=== PATIENT | female | born 1930 | race Caucasian/White ===

== ENCOUNTER 2016-03-11 13:58 | Emergency (ER) | payer MEDICARE, OTHER ==
--- NOTE | 2016-03-11 15:44 | ED.PDOC ---
History of Present Illness - General Chief Complaint: Respiratory Problem Stated Complaint: COUGH AND WHEEZING Time Seen by Provider: 03/11/16 15:43 Source: patient, RN notes reviewed, Vital Signs reviewed, EMS notes reviewed, family Exam Limitations: no limitations - History of Present Illness Initial Comments: Daughter stated that she had been coughing and wheezing for 5 days which got worse today Timing/Duration: other - 5 days Improving Factors: nothing Worsening Factors: nothing Associated Symptoms: weakness Allergies/Adverse Reactions: Allergies Codeine Allergy (Verified 10/18/15 22:08) Home Medications: Ambulatory Orders Atorvastatin Calcium [Lipitor] 10 mg PO BEDTIME 09/23/14 Levothyroxine Sodium 50 mcg PO ACBK 09/23/14 Memantine HCl [Namenda Xr] 28 mg PO BEDTIME 09/23/14 Metoprolol Succinate [Metoprolol Succinate ER] 25 mg PO DAILY 09/23/14 Sertraline HCl 100 mg PO BID 09/23/14 Raloxifene HCl [Evista] 60 mg PO DAILY 04/24/15 Trazodone HCl 100 mg PO BEDTIME 09/16/15 Aspirin [Coated Aspirin] 325 mg PO DAILY 10/29/15 Axona 1 ea PO PP 10/30/15 Mefenamic Acid [Ponstel] 250 mg PO TID 10/30/15 Metoprolol Succinate [Metoprolol Succinate ER] 25 mg PO DAILY 10/30/15 Raloxifene HCl [Evista] 60 mg PO DAILY 10/30/15 Rivastigmine Tartrate [Exelon] 6 mg PO DAILY 10/30/15 Vitamin E [Vitamin E-200] 1,000 unit PO BID 10/30/15 Cefuroxime Axetil [Ceftin] 250 mg PO BID #14 tab 03/11/16 Levalbuterol Tartrate [Xopenex Hfa] 45 mcg IN QID PRN #1 ml 03/11/16 predniSONE [Prednisone] 10 mg PO BID #14 tab 03/11/16 Review of Systems - Review of Systems Constitutional: States: weakness Respiratory: States: cough, wheezing Cardiology: States: no symptoms reported Gastrointestinal/Abdominal: States: no symptoms reported Genitourinary: States: see HPI, other - oab Musculoskeletal: States: muscle pain Skin: States: no symptoms reported Neurological: States: other - dementia Endocrine: States: no symptoms reported Hematologic/Lymphatic: States: no symptoms reported Past Medical History (General) - Patient Medical History Hx Seizures: No Hx Stroke: Yes - TIA Hx Dementia: Yes Hx Asthma: No Hx of COPD: No Hx Cardiac Disorders: Yes Hx Congestive Heart Failure: No Hx Pacemaker: No Hx Hypertension: Yes Hx Thyroid Disease: Yes Hx Diabetes: No Hx Cancer: No Hx Hepatitis C: No Hx MRSA: No Surgical History: other - TAHBSO,carotid tumor removal,retina surgery - Vaccination History Hx Tetanus, Diphtheria Vaccination: Yes Hx Influenza Vaccination: Yes Hx Pneumococcal Vaccination: Yes Immunizations Up to Date: Yes - Social History Hx Tobacco Use: No Hx Chewing Tobacco Use: No Hx Alcohol Use: No Hx Substance Use: No Hx Substance Use Treatment: No Hx Depression: Yes Hx Physical Abuse: No Hx Emotional Abuse: No Hx Suspected Abuse: No - Activities of Daily Living Patient Lives Alone: Yes - but with 24 hour sitter stays with her Grooming Ability: Maximum Assistance - Female History Patient : No Family Medical History - Family History Mother Living Status: Hx Family Hypertension: Yes Hx Family Stroke: Yes Hx Family Cancer: Yes - lymphocytic leukemia Father Living Status: Physical Exam - Physical Exam General Appearance: Alert, No apparent distress, Well Groomed Ears, Nose, Throat: hearing grossly normal, normal ENT inspection, normal pharynx Neck: non-tender, full range of motion, supple Respiratory: chest non-tender, no respiratory distress, no accessory muscle use , wheezing - mld, other - speaks in full sentences Cardiovascular/Chest: normal peripheral pulses, regular rate, rhythm, no edema, no gallop Gastrointestinal/Abdominal: normal bowel sounds, non tender Back Exam: normal inspection, no CVA tenderness, no vertebral tenderness Extremity: normal range of motion, non-tender, pedal edema - bilaterally Neurologic: no motor/sensory deficits, alert Skin Exam: normal color, warm/dry Lymphatic: no adenopathy Progress - Results/Orders Results/Orders: 03/11/16 15:59 EKG Assessment ONCE URINALYSIS Stat 03/11/16 16:00 EKG STAT Laboratory Results WBC 12.8 K/mm3 (4.8-10.8) H 03/11/16 16:10 RBC 4.33 M/mm3 (4.20-5.40) 03/11/16 16:10 Hgb 12.2 gm/dL (12.0-16.0) 03/11/16 16:10 Hct 38.0 % (36.0-47.0) 03/11/16 16:10 MCV 87.6 fl (81.0-99.0) 03/11/16 16:10 MCH 28.1 pg (27.0-31.0) 03/11/16 16:10 MCHC 32.1 g/dL (33.0-37.0) L 03/11/16 16:10 RDW 15.8 % (11.5-14.5) H 03/11/16 16:10 Plt Count 275 K/mm3 (130-400) 03/11/16 16:10 MPV 7.5 fl (7.40-10.4) 03/11/16 16:10 Absolute Neuts (auto) 7.50 K/uL (1.8-6.8) H 03/11/16 16:10 Absolute Lymphs (auto) 3.20 K/uL (1.0-3.4) 03/11/16 16:10 Absolute Monos (auto) 1.00 K/uL (0.2-0.8) H 03/11/16 16:10 Absolute Eos (auto) 0.90 K/uL (0.0-0.4) H 03/11/16 16:10 Absolute Basos (auto) 0.10 K/uL (0.0-0.1) 03/11/16 16:10 Neutrophils % 58.9 % (42.0-78.0) 03/11/16 16:10 Lymphocytes % 25.0 % (20.0-50.0) 03/11/16 16:10 Monocytes % 8.2 % (2.0-9.0) 03/11/16 16:10 Eosinophils % 7.1 % (1.0-5.0) H 03/11/16 16:10 Basophils % 0.8 % (0.0-2.0) 03/11/16 16:10 Sodium 135 mmol/L (135-145) 03/11/16 16:10 Potassium 4.1 mmol/L (3.6-5.0) 03/11/16 16:10 Chloride 102 mmol/L (101-111) 03/11/16 16:10 Carbon Dioxide 26 mmol/L (21-31) 03/11/16 16:10 Anion Gap 11.1 (12-18) L 03/11/16 16:10 BUN 13 mg/dL (7-18) 03/11/16 16:10 Creatinine 0.91 mg/dL (0.6-1.3) 03/11/16 16:10 BUN/Creatinine Ratio 14.3 (10-20) 03/11/16 16:10 Random Glucose 83 mg/dL (70-105) 03/11/16 16:10 Serum Osmolality 269.4 mOsm/L (275-295) L 03/11/16 16:10 Lactic Acid 1.1 mmol/L (0.5-2.2) 03/11/16 16:10 Calcium 9.0 mg/dL (8.4-10.2) 03/11/16 16:10 Total Bilirubin 0.4 mg/dL (0.2-1.0) 03/11/16 16:10 AST 24 IU/L (10-42) 03/11/16 16:10 ALT 21 IU/L (10-60) 03/11/16 16:10 Alkaline Phosphatase 67 IU/L (42-121) 03/11/16 16:10 B-Natriuretic Peptide 116.0 pg/ml (0-100) H 03/11/16 16:10 Serum Total Protein 6.6 gm/dL (6.4-8.2) 03/11/16 16:10 Albumin 3.3 g/dl (3.2-5.5) 03/11/16 16:10 Globulin 3.3 gm/dL (2.3-3.5) 03/11/16 16:10 Albumin/Globulin Ratio 1.0 (1.1-1.9) L 03/11/16 16:10 03/11/16 16:00 EKG STAT 03/11/16 18:05 Catheter:Straight .ONCE Laboratory Results WBC 12.8 K/mm3 (4.8-10.8) H 03/11/16 16:10 RBC 4.33 M/mm3 (4.20-5.40) 03/11/16 16:10 Hgb 12.2 gm/dL (12.0-16.0) 03/11/16 16:10 Hct 38.0 % (36.0-47.0) 03/11/16 16:10 MCV 87.6 fl (81.0-99.0) 03/11/16 16:10 MCH 28.1 pg (27.0-31.0) 03/11/16 16:10 MCHC 32.1 g/dL (33.0-37.0) L 03/11/16 16:10 RDW 15.8 % (11.5-14.5) H 03/11/16 16:10 Plt Count 275 K/mm3 (130-400) 03/11/16 16:10 MPV 7.5 fl (7.40-10.4) 03/11/16 16:10 Absolute Neuts (auto) 7.50 K/uL (1.8-6.8) H 03/11/16 16:10 Absolute Lymphs (auto) 3.20 K/uL (1.0-3.4) 03/11/16 16:10 Absolute Monos (auto) 1.00 K/uL (0.2-0.8) H 03/11/16 16:10 Absolute Eos (auto) 0.90 K/uL (0.0-0.4) H 03/11/16 16:10 Absolute Basos (auto) 0.10 K/uL (0.0-0.1) 03/11/16 16:10 Neutrophils % 58.9 % (42.0-78.0) 03/11/16 16:10 Lymphocytes % 25.0 % (20.0-50.0) 03/11/16 16:10 Monocytes % 8.2 % (2.0-9.0) 03/11/16 16:10 Eosinophils % 7.1 % (1.0-5.0) H 03/11/16 16:10 Basophils % 0.8 % (0.0-2.0) 03/11/16 16:10 Sodium 135 mmol/L (135-145) 03/11/16 16:10 Potassium 4.1 mmol/L (3.6-5.0) 03/11/16 16:10 Chloride 102 mmol/L (101-111) 03/11/16 16:10 Carbon Dioxide 26 mmol/L (21-31) 03/11/16 16:10 Anion Gap 11.1 (12-18) L 03/11/16 16:10 BUN 13 mg/dL (7-18) 03/11/16 16:10 Creatinine 0.91 mg/dL (0.6-1.3) 03/11/16 16:10 BUN/Creatinine Ratio 14.3 (10-20) 03/11/16 16:10 Random Glucose 83 mg/dL (70-105) 03/11/16 16:10 Serum Osmolality 269.4 mOsm/L (275-295) L 03/11/16 16:10 Lactic Acid 1.1 mmol/L (0.5-2.2) 03/11/16 16:10 Calcium 9.0 mg/dL (8.4-10.2) 03/11/16 16:10 Total Bilirubin 0.4 mg/dL (0.2-1.0) 03/11/16 16:10 AST 24 IU/L (10-42) 03/11/16 16:10 ALT 21 IU/L (10-60) 03/11/16 16:10 Alkaline Phosphatase 67 IU/L (42-121) 03/11/16 16:10 B-Natriuretic Peptide 116.0 pg/ml (0-100) H 03/11/16 16:10 Serum Total Protein 6.6 gm/dL (6.4-8.2) 03/11/16 16:10 Albumin 3.3 g/dl (3.2-5.5) 03/11/16 16:10 Globulin 3.3 gm/dL (2.3-3.5) 03/11/16 16:10 Albumin/Globulin Ratio 1.0 (1.1-1.9) L 03/11/16 16:10 Urine Color Yellow (Yellow) 03/11/16 17:58 Urine Appearance Clear (Clear) 03/11/16 17:58 Urine pH 6.0 (4.5-7.8) 03/11/16 17:58 Ur Specific [place] 1.015 (1.005-1.030) 03/11/16 17:58 Urine Protein Negative mg/dL 03/11/16 17:58 Urine Glucose (UA) Negative mg/dL (Negative) 03/11/16 17:58 Urine Ketones Negative mg/dL (NEGATIVE) 03/11/16 17:58 Urine Blood Negative (Negative) 03/11/16 17:58 Urine Nitrite Negative 03/11/16 17:58 Urine Bilirubin Negative (NEGATIVE) 03/11/16 17:58 Urine Urobilinogen 0.2 mg/dL (0.2-1.0) 03/11/16 17:58 Ur Leukocyte Esterase Negative (Negative) 03/11/16 17:58 Urine RBC 0-1 /hpf 03/11/16 17:58 Urine WBC 1-3 /hpf 03/11/16 17:58 Ur Epithelial Cells 0-1 /hpf 03/11/16 17:58 Urine Bacteria 0 03/11/16 17:58 Departure - Departure Clinical Impression: Bronchitis with bronchospasm Time of Disposition: 18:50 Disposition: Discharge to Home or Self Care Condition: Good Departure Forms: ED Discharge - Pt. Copy, Patient Portal Self Enrollment Instructions: DI for Acute Bronchitis Prescriptions: Cefuroxime Axetil [Ceftin] 250 mg PO BID #14 tab predniSONE [Prednisone] 10 mg PO BID #14 tab Levalbuterol Tartrate [Xopenex Hfa] 45 mcg IN QID PRN #1 ml PRN Reason: Wheezing Home Medications: Ambulatory Orders Atorvastatin Calcium [Lipitor] 10 mg PO BEDTIME 09/23/14 Levothyroxine Sodium 50 mcg PO ACBK 09/23/14 Memantine HCl [Namenda Xr] 28 mg PO BEDTIME 09/23/14 Metoprolol Succinate [Metoprolol Succinate ER] 25 mg PO DAILY 09/23/14 Sertraline HCl 100 mg PO BID 09/23/14 Raloxifene HCl [Evista] 60 mg PO DAILY 04/24/15 Trazodone HCl 100 mg PO BEDTIME 09/16/15 Aspirin [Coated Aspirin] 325 mg PO DAILY 10/29/15 Axona 1 ea PO PP 10/30/15 Mefenamic Acid [Ponstel] 250 mg PO TID 10/30/15 Metoprolol Succinate [Metoprolol Succinate ER] 25 mg PO DAILY 10/30/15 Raloxifene HCl [Evista] 60 mg PO DAILY 10/30/15 Rivastigmine Tartrate [Exelon] 6 mg PO DAILY 10/30/15 Vitamin E [Vitamin E-200] 1,000 unit PO BID 10/30/15 Cefuroxime Axetil [Ceftin] 250 mg PO BID #14 tab 03/11/16 Levalbuterol Tartrate [Xopenex Hfa] 45 mcg IN QID PRN #1 ml 03/11/16 predniSONE [Prednisone] 10 mg PO BID #14 tab 03/11/16
--- NOTE | 2016-03-11 16:32 | RAD ---
EXAM DESCRIPTION: XR CHEST 1 VIEW CLINICAL HISTORY: cough COMPARISON: October 30, 2015. FINDINGS: Cardiac silhouette is within normal limits. Contour of the mediastinum and aorta are unchanged compared with the prior examination. Patient is rotated. There is no focal parenchymal or pleural disease. There is no acute osseous process visualized. IMPRESSION: No evidence of acute cardiopulmonary disease. Electronically signed by: Vignesh Sotelo 03/11/2016 16:30
[2016-03-11 18:51] VITALS: TEMP 98.6; O2SAT 96
[2016-03-11] MEDS ORDERED: CEFUROXIME AXETIL TAB 250 MG TAB PO ONE (18:51)
[2016-03-11] MEDS ORDERED: predniSONE 20 MG TAB PO ONE (18:52)
[2016-03-11 19:28] VITALS: BP 142/82
== END 2016-03-11 19:28 | disposition home or self-care (01) ==
LOC: ER 13:58
DX: J40 Bronchitis, not specified as acute or chronic (principal); J98.01 Acute bronchospasm; Z88.6 Allergy status to analgesic agent; I10 Essential (primary) hypertension; E07.9 Disorder of thyroid, unspecified; F32.9 Major depressive disorder, single episode, unspecified; F03.90 Unspecified dementia, unspecified severity, without behavioral disturbance, psychotic disturbance, mood disturbance, and anxiety; Z79.82 Long term (current) use of aspirin; Z79.899 Other long term (current) drug therapy; Z86.73 Personal history of transient ischemic attack (TIA), and cerebral infarction without residual deficits
CPT/HCPCS: 36415; 51701; 71010; 80053; 81001; 83605; 83880; 85025; 93005; J7512

== ENCOUNTER → 2016-04-02 | Outpatient (CLI) | payer MEDICARE, OTHER | LOC: GMA 14:06 | PROVIDERS: ATTEND Nurse Practitioner Family | DX: M62.81 Muscle weakness (generalized) (principal) ==

== ENCOUNTER 2016-04-22 16:44 | Emergency (ER) | payer MEDICARE, OTHER ==
--- NOTE | 2016-04-22 18:40 | RAD ---
EXAM DESCRIPTION: KUB CLINICAL HISTORY: diarrhea, ams COMPARISON: None. FINDINGS: Single supine view of the abdomen was submitted. There is no evidence of bowel obstruction. Calcifications within the pelvis may represent phleboliths. There are degenerative changes and scoliosis of the lumbar spine.. There is no acute osseous process visualized. IMPRESSION: No acute abnormalities. Electronically signed by: Vignesh Sotelo MD 04/22/2016 6:40 PM MINE ANALYST
--- NOTE | 2016-04-22 19:22 | ED.PDOC ---
History of Present Illness - General Chief Complaint: General Time Seen by Provider: 04/22/16 17:05 Source: patient, family Exam Limitations: no limitations - History of Present Illness Initial Comments: the patient is an 85-year-old female presenting to the emergency room with her family secondary to symptoms progressive over the last week. Over the last week she has become a little weaker and getting around requiring more assistance. She has additionally been showing some increased confusion but no focal neurological changes and nothing truly abrupt. She has had a couple of episodes of nausea and several episodes of diarrhea over the last 24 hours. Her oral intake has been fair. No definite fevers. It is difficult to tell what symptoms she is having due to the dementia. Family is very supportive and in fact they are placing her in an assisted living facility today where she will have to nurses to help her. Timing/Duration: unsure Severity: mild Improving Factors: nothing Worsening Factors: nothing Associated Symptoms: malaise, weakness Allergies/Adverse Reactions: Allergies Codeine Allergy (Verified 10/18/15 22:08) Home Medications: Ambulatory Orders Atorvastatin Calcium [Lipitor] 10 mg PO BEDTIME 09/23/14 Levothyroxine Sodium 50 mcg PO ACBK 09/23/14 Memantine HCl [Namenda Xr] 28 mg PO BEDTIME 09/23/14 Metoprolol Succinate [Metoprolol Succinate ER] 25 mg PO DAILY 09/23/14 Sertraline HCl 100 mg PO BID 09/23/14 Raloxifene HCl [Evista] 60 mg PO DAILY 04/24/15 Trazodone HCl 100 mg PO BEDTIME 09/16/15 Aspirin [Coated Aspirin] 325 mg PO DAILY 10/29/15 Axona 1 ea PO PP 10/30/15 Mefenamic Acid [Ponstel] 250 mg PO TID 10/30/15 Metoprolol Succinate [Metoprolol Succinate ER] 25 mg PO DAILY 10/30/15 Raloxifene HCl [Evista] 60 mg PO DAILY 10/30/15 Rivastigmine Tartrate [Exelon] 6 mg PO DAILY 10/30/15 Vitamin E [Vitamin E-200] 1,000 unit PO BID 10/30/15 Cefuroxime Axetil [Ceftin] 250 mg PO BID #14 tab 03/11/16 Levalbuterol Tartrate [Xopenex Hfa] 45 mcg IN QID PRN #1 ml 03/11/16 predniSONE [Prednisone] 10 mg PO BID #14 tab 03/11/16 Review of Systems - Review of Systems Constitutional: States: malaise, weakness - generalized EENTM: States: no symptoms reported Respiratory: States: no symptoms reported Cardiology: States: no symptoms reported Gastrointestinal/Abdominal: States: diarrhea, nausea Genitourinary: States: no symptoms reported Musculoskeletal: States: no symptoms reported Skin: States: no symptoms reported Neurological: States: other - increased confusion Endocrine: States: no symptoms reported All other Systems: No Change from Baseline Past Medical History (General) - Patient Medical History Hx Seizures: No Hx Stroke: Yes - TIA Hx Dementia: Yes Hx Asthma: No Hx of COPD: No Hx Cardiac Disorders: Yes Hx Congestive Heart Failure: No Hx Pacemaker: No Hx Hypertension: Yes Hx Thyroid Disease: Yes Hx Diabetes: No Hx Cancer: No Hx Hepatitis C: No Hx MRSA: No - Vaccination History Hx Tetanus, Diphtheria Vaccination: Yes Hx Influenza Vaccination: Yes Hx Pneumococcal Vaccination: Yes - Social History Hx Tobacco Use: No Hx Chewing Tobacco Use: No Hx Alcohol Use: No Hx Substance Use: No Hx Substance Use Treatment: No Hx Depression: Yes Hx Physical Abuse: No Hx Emotional Abuse: No Hx Suspected Abuse: No - Female History Patient : No Family Medical History - Family History Mother Living Status: Hx Family Hypertension: Yes Hx Family Stroke: Yes Hx Family Cancer: Yes - lymphocytic leukemia Father Living Status: Physical Exam - Physical Exam General Appearance: Alert, Comfortable, No apparent distress, Other - he is significantly confused but in no distress Eye Exam: bilateral normal Ears, Nose, Throat: normal ENT inspection, normal pharynx Neck: non-tender, full range of motion, supple Respiratory: chest non-tender, lungs clear, normal breath sounds, no respiratory distress, no accessory muscle use Cardiovascular/Chest: normal peripheral pulses, no edema Peripheral Pulses: radial,right: 2+, radial,left: 2+, dorsalis pedis,right: 2+, dorsalis pedis,left: 2+ Gastrointestinal/Abdominal: soft, other - mild discomfort throughout the abdomen but no guarding or rebound or peritoneal signs Rectal Exam: deferred Back Exam: normal inspection Extremity: normal range of motion, non-tender, normal inspection, no pedal edema , no calf tenderness, normal capillary refill Neurologic: alert, normal mood/affect, oriented x 3 Skin Exam: normal color Progress - Progress Progress: 04/22/16 19:27 the patient is an 85-year-old female presenting with mild delirium, mild dehydration likely related to a viral gastroenteritis. Encourage liquid intake. One tablet of Imodium can be taken daily if needed to control the Diarrhea. Recommended the patient follow-up with her primary care doctor towards the end of the week. ER warnings were given for any acute worsening or significant change in her condition. Family has agreed to this. family was offered to have the patient admitted under observation overnight to make sure symptoms did not progress or worsen. At this time they would prefer to take her to her assisted living facility and initiate her care there, which is reasonable 04/22/16 19:30 - Results/Orders Results/Orders: 04/22/16 17:24 INFLUENZA A & B ANTIGEN Stat negative Laboratory Results - last 24 hr 04/22/16 02 17:20 17:24 WBC 11.4 H RBC 4.27 Hgb 12.2 Hct 37.2 MCV 87.2 MCH 28.7 MCHC 32.9 L RDW 17.3 H Plt Count 245 MPV 7.8 Absolute Neuts (auto) 6.50 Absolute Lymphs (auto) 3.20 Absolute Monos (auto) 1.20 H Absolute Eos (auto) 0.40 Absolute Basos (auto) 0.10 Neutrophils % 57.2 Lymphocytes % 27.8 Monocytes % 10.6 H Eosinophils % 3.8 Basophils % 0.6 PT 12.2 INR 1.080 PTT (SP) 25.5 Sodium 137 Potassium 4.1 Chloride 104 Carbon Dioxide 27 Anion Gap 10.1 L BUN 18 Creatinine 0.84 BUN/Creatinine Ratio 21.4 H Random Glucose 78 Serum Osmolality 274.6 L Calcium 9.0 Magnesium 2.3 Total Bilirubin 0.2 AST 26 ALT 22 Alkaline Phosphatase 58 Creatine Kinase 57 CK-MB (CK-2) 1.0 CK-MB (CK-2) % Not Reportable Troponin I < 0.02 Serum Total Protein 6.5 Albumin 3.3 Globulin 3.2 Albumin/Globulin Ratio 1.0 L Amylase 50 Lipase 45 TSH 4.35 Urine Color Yellow Urine Appearance Clear Urine pH 6.0 Ur Specific [place] 1.020 Urine Protein Negative Urine Glucose (UA) Negative Urine Ketones Negative Urine Blood Negative Urine Nitrite Negative Urine Bilirubin Negative Urine Urobilinogen 0.2 Ur Leukocyte Esterase Negative Urine RBC 0 Urine WBC 0-1 Ur Epithelial Cells 0-1 Calcium Oxalate Crystal 1+ Amorphous Sediment 3+ Urine Bacteria 0 KUB shows a benign pattern. Departure - Departure Clinical Impression: Gastroenteritis and colitis, viral Disposition: Discharge to Asst Living Condition: Fair Departure Forms: Patient Portal Self Enrollment, ED Discharge - Pt. Copy Instructions: DI for Viral Gastroenteritis -- Adult Diet: bland diet Activity: increase activity as tolerated Home Medications: Ambulatory Orders Atorvastatin Calcium [Lipitor] 10 mg PO BEDTIME 09/23/14 Levothyroxine Sodium 50 mcg PO ACBK 09/23/14 Memantine HCl [Namenda Xr] 28 mg PO BEDTIME 09/23/14 Metoprolol Succinate [Metoprolol Succinate ER] 25 mg PO DAILY 09/23/14 Sertraline HCl 100 mg PO BID 09/23/14 Raloxifene HCl [Evista] 60 mg PO DAILY 04/24/15 Trazodone HCl 100 mg PO BEDTIME 09/16/15 Aspirin [Coated Aspirin] 325 mg PO DAILY 10/29/15 Axona 1 ea PO PP 10/30/15 Mefenamic Acid [Ponstel] 250 mg PO TID 10/30/15 Metoprolol Succinate [Metoprolol Succinate ER] 25 mg PO DAILY 10/30/15 Raloxifene HCl [Evista] 60 mg PO DAILY 10/30/15 Rivastigmine Tartrate [Exelon] 6 mg PO DAILY 10/30/15 Vitamin E [Vitamin E-200] 1,000 unit PO BID 10/30/15 Cefuroxime Axetil [Ceftin] 250 mg PO BID #14 tab 03/11/16 Levalbuterol Tartrate [Xopenex Hfa] 45 mcg IN QID PRN #1 ml 03/11/16 predniSONE [Prednisone] 10 mg PO BID #14 tab 03/11/16 Additional Instructions: the patient is an 85-year-old female presenting with mild delirium, mild dehydration likely related to a viral gastroenteritis. Encourage liquid intake. One tablet of Imodium can be taken daily if needed to control the Diarrhea. Recommended the patient follow-up with her primary care doctor towards the end of the week. ER warnings were given for any acute worsening or significant change in her condition. Family has agreed to this.
[2016-04-22 19:34] VITALS: TEMP 98.3; O2SAT 95
[2016-04-22 20:19] VITALS: BP 132/72
== END 2016-04-22 20:20 ==
LOC: ER 16:44
DX: A08.4 Viral intestinal infection, unspecified (principal); F03.90 Unspecified dementia, unspecified severity, without behavioral disturbance, psychotic disturbance, mood disturbance, and anxiety; I10 Essential (primary) hypertension; E07.9 Disorder of thyroid, unspecified; Z79.899 Other long term (current) drug therapy; Z88.6 Allergy status to analgesic agent; Z86.73 Personal history of transient ischemic attack (TIA), and cerebral infarction without residual deficits; Z79.82 Long term (current) use of aspirin; Z82.3 Family history of stroke; Z80.6 Family history of leukemia
CPT/HCPCS: 36415; 74000; 80053; 81001; 82150; 82550; 82553; 83690; 83735; 84443; 84484; 85025; 85610; 85730; 87804; J2060

== ENCOUNTER 2016-05-25 09:42 | Inpatient (IN) | payer MEDICARE, OTHER ==
--- NOTE | 2016-05-25 10:10 | ED.PDOC ---
History of Present Illness - General Chief Complaint: Fever Stated Complaint: fever, cough Time Seen by Provider: 05/25/16 10:02 Source: RN notes reviewed, Vital Signs reviewed, family Exam Limitations: other - Dementia - History of Present Illness Initial Comments: Daughter reports that patient has had allergy symptoms for the past 7-10 days. Last night she developed a fever to 100.4. She has had a cough and daughter thought she heard crackles in her lungs. 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 Denies: short of breath, stridor, wheezing Cardiology: States: no symptoms reported. Denies: chest pain, edema, palpitations, syncope Gastrointestinal/Abdominal: States: no symptoms reported. Denies: abdominal pain, constipation, diarrhea, vomiting Genitourinary: States: no symptoms reported Musculoskeletal: States: no symptoms reported Skin: States: no symptoms reported Neurological: States: no symptoms reported Endocrine: States: no symptoms reported Past Medical History (General) - Patient Medical History Hx Seizures: No Hx Stroke: Yes - TIA Hx Dementia: Yes Hx Asthma: No Hx of COPD: No Hx Cardiac Disorders: Yes Hx Congestive Heart Failure: No Hx Pacemaker: No Hx Hypertension: Yes Hx Thyroid Disease: Yes Hx Diabetes: No Hx Cancer: No Hx Hepatitis C: No Hx MRSA: No Surgical History: Hysterectomy - Vaccination History Hx Tetanus, Diphtheria Vaccination: - unknown Hx Influenza Vaccination: Yes Hx Pneumococcal Vaccination: Yes - Social History Hx Tobacco Use: No Hx Chewing Tobacco Use: No Hx Alcohol Use: No Hx Substance Use: No Hx Substance Use Treatment: No Hx Depression: Yes Hx Physical Abuse: No Hx Emotional Abuse: No Hx Suspected Abuse: No - Activities of Daily Living Residential/Assisted Living (if applicable):: [facility] - Female History Patient is a Female of Child Bearing Age (10 -59 yrs old): No Patient : No Family Medical History - Family History Mother Living Status: Hx Family Hypertension: Yes Hx Family Stroke: Yes Hx Family Cancer: Yes - lymphocytic leukemia Father Living Status: Physical Exam - Physical Exam General Appearance: Comfortable, No apparent distress, Other - Dry mucous membranes ENT Exam: hearing grossly normal Neck: non-tender, full range of motion, supple, normal inspection, trachea midline Respiratory: chest non-tender, no respiratory distress, no accessory muscle use , decreased breath sounds - RLL Cardiovascular/Chest: normal peripheral pulses, regular rate, rhythm, no edema, no gallop, no JVD, no murmur Gastrointestinal/Abdominal: normal bowel sounds, non tender, soft, no organomegaly, no pulsatile mass Extremity: non-tender, normal inspection Neurologic: no motor/sensory deficits, disoriented x 3 - due to alzheimers Skin Exam: normal color, warm/dry Lymphatic: no adenopathy Progress - Progress Progress: 05/25/16 10:51 Per daughter patient has a very difficult time with medications and the staff at [facility] is unable to get her to take her medications. Discussed with Dr. Velasquez - will admit patient for IV antibiotics. - Results/Orders Results/Orders: Laboratory Tests 05/25/16 10:33 WBC 16.7 H RBC 4.06 L Hgb 11.6 L Hct 35.6 L MCV 87.8 MCH 28.5 MCHC 32.4 L RDW 18.3 H Plt Count 251 MPV 7.4 Absolute Neuts (auto) 12.10 H Absolute Lymphs (auto) 2.20 Absolute Monos (auto) 2.10 H Absolute Eos (auto) 0.20 Absolute Basos (auto) 0.10 Neutrophils % 72.5 Lymphocytes % 13.2 L Monocytes % 12.7 H Eosinophils % 1.2 Basophils % 0.4 Sodium 136 Potassium 4.1 Chloride 103 Carbon Dioxide 25 Anion Gap 12.1 BUN 15 Creatinine 0.89 BUN/Creatinine Ratio 16.9 Random Glucose 125 H Serum Osmolality 274.3 L Calcium 9.1 Total Bilirubin 0.5 AST 29 ALT 22 Alkaline Phosphatase 77 Serum Total Protein 6.3 L Albumin 3.0 L Globulin 3.3 Albumin/Globulin Ratio 0.9 L - EKG/XRAY/CT XRAY: chest - RLL inflitrate Departure - Departure Clinical Impression: Pneumonia Time of Disposition: 10:53 Disposition: Admit Patient Departure Forms: ED Discharge - Pt. Copy, Patient Portal Self Enrollment Home Medications: Ambulatory Orders Atorvastatin Calcium [Lipitor] 10 mg PO BEDTIME 09/23/14 Levothyroxine Sodium 50 mcg PO ACBK 09/23/14 Memantine HCl [Namenda Xr] 28 mg PO BEDTIME 09/23/14 Metoprolol Succinate [Metoprolol Succinate ER] 25 mg PO DAILY 09/23/14 Sertraline HCl 100 mg PO BID 09/23/14 Raloxifene HCl [Evista] 60 mg PO DAILY 04/24/15 Trazodone HCl 100 mg PO BEDTIME 09/16/15 Aspirin [Coated Aspirin] 325 mg PO DAILY 10/29/15 Axona 1 ea PO PP 10/30/15 Mefenamic Acid [Ponstel] 250 mg PO TID 10/30/15 Metoprolol Succinate [Metoprolol Succinate ER] 25 mg PO DAILY 10/30/15 Raloxifene HCl [Evista] 60 mg PO DAILY 10/30/15 Rivastigmine Tartrate [Exelon] 6 mg PO DAILY 10/30/15 Vitamin E [Vitamin E-200] 1,000 unit PO BID 10/30/15 Cefuroxime Axetil [Ceftin] 250 mg PO BID #14 tab 03/11/16 Levalbuterol Tartrate [Xopenex Hfa] 45 mcg IN QID PRN #1 ml 03/11/16 predniSONE [Prednisone] 10 mg PO BID #14 tab 03/11/16 Decision To Admit - Decistion To Admit Decision to Admit Reason: Admit from ER - Pneumonia
[2016-05-25] MEDS ORDERED: SODIUM CHLORIDE 0.9% 1000ML 1,000 ML IVS ONE (10:12)
--- NOTE | 2016-05-25 10:33 | RAD ---
PROCEDURE: XR CHEST 1 VIEW HISTORY: fever/cough COMPARISON: 03/11/2016 TECHNIQUE: Single projection of the chest was done. FINDINGS: There is presence of mild infiltrate/atelectasis in the right lower lung zone . There are no pneumothoraces or pleural effusions. The pulmonary vascularity is normal. The cardiomediastinal contour is stable . IMPRESSION: There is presence of mild infiltrate/atelectasis in the right lower lung zone . Electronically signed by: Edward Rodríguez MD 05/25/2016 10:33 AM CDT
[2016-05-25] MEDS ORDERED: AZITHROMYCIN IV 500 MG in SODIUM CHLORIDE 0.9% 250ML 250 ML IVPB ONE (10:41)
[2016-05-25] MEDS ORDERED: cefTRIAXone SODIUM 1 GM in SODIUM CHL 0.9% 50ML MIN-BAG+ 50 ML IVPB ONE (10:49)
[2016-05-25] MEDS ORDERED: cefTRIAXone SODIUM 1 GM VIAL ONE ×2 (11:01→20:26)
[2016-05-25] MEDS ORDERED: SODIUM CHL 0.9% 50ML MIN-BAG+ 50 ML IVPB ONE ×2 (11:01→20:26)
[2016-05-25] MEDS ORDERED: SODIUM CHLORIDE 0.9% 250ML 250 ML ONE (11:41)
[2016-05-25] MEDS ORDERED: AZITHROMYCIN IV 500 MG VIAL IVPB ONE (11:41)
[2016-05-25] MEDS ORDERED: MAGNESIUM HYDROXIDE 30 ML UD PO PRN ×2 (11:46→12:31)
[2016-05-25] MEDS ORDERED: IBUPROFEN 400 MG TAB PO PRN ×2 (11:46→12:31)
[2016-05-25] MEDS ORDERED: SODIUM CHLORIDE 0.9% (FLUSH) 10 ML SYG IV PRN (11:46)
[2016-05-25] MEDS ORDERED: SODIUM CHLORIDE 0.9% 1000ML 1,000 ML IVS PRN (11:55)
[2016-05-25] MEDS ORDERED: IPRATROPIUM/ALBUTEROL 3 ML VIAL INH SCH (12:00)
[2016-05-25] MEDS ORDERED: IV SET AND CAP CHANGE INJ INJ SCH (12:00)
--- NOTE | 2016-05-25 12:31 | HP ---
HISTORY OF PRESENT ILLNESS: This 85 year-old white female is admitted to the hospital from the Emergency Room after being found by family at [facility] unit to be having respiratory distress with cough and fever. She has been coughing now for a week and a half and has had increasing fever noted last evening. Mild respiratory distress periodically evident. The patient is unable to fully cooperate with the history in describing her symptoms, but her current symptoms seems to be well documented by her daughter who is a retired Emergency Room nurse. The dementia has been getting progressively worse over the last 4 or 5 months to the point where the family is unable to care for the patient at home and has been in [place] for the last 4 weeks with a sitter to assist with her ongoing care. She is requiring maximal assistance to just transfer from the bed to a chair. The patient has increased risk of falls. The patient is admitted to the hospital for IV antibiotic therapy because of the patient's refusal to take pills and even refusal to take many of her medications which are usually in the liquid form. So to maximize care, she is going to be receiving at least 3 days of IV parenteral antibiotics because of the right lower lobe infiltrate noted on x-ray on the day of admission. PAST MEDICAL HISTORY: 1. An episode of rapid ventricular tachycardia in 2003 for which she has been on beta blockade. 2. History of elevated lipids. 3. Advancing Alzheimer's dementia. 4. History of previous cerebrovascular accident with a carotid artery stenosis. 5. History of hypertension. 6. Recurring urinary tract infections. 7. History of diarrhea. 8. History of hypothyroidism on supplement. PAST SURGICAL HISTORY: 1. Hysterectomy in 1987. 2. Retinal detachment in the past. CURRENT MEDICATIONS: Please refer to the patient's nurses' summation of medications currently being taken and verified via [place]'s records. ALLERGIES: CODEINE. FAMILY HISTORY: Positive for cerebrovascular accidents. 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 No history of tobacco abuse in the past. REVIEW OF SYSTEMS: The patient is unable to fully cooperate in response to review of systems questioning. Her weight has gone up a little bit as they have been attempting to work on her caloric intake. Low-grade fever is evident with temperature up to 101.4 equivalents last evening. Coughing has been getting worse for the last week. No hemoptysis. GASTROINTESTINAL: No nausea and vomiting. No diarrhea. No blood in the stools. GENITOURINARY: No complaint of dysuria. EXTREMITIES: Trace of edema. NEUROLOGIC: Steady decline and weakness, and ability to function with dementia worsening even with medication support. PHYSICAL EXAMINATION: VITAL SIGNS: Afebrile at this time. Pulse 91, blood pressure 118/60, pulse oximetry 92 to 93% on room air, respirations 20. Weight 81.6 kilos. GENERAL: The patient is able to be aroused. Looks around but is unable to be aware of where she is at, who people are or the time of events. The patient appears to be in no acute distress at this time. Rare coughing evident. HEENT: History of retinal detachment. The patient is unable to cooperate for visual acuity. NECK: Supple with no significant adenopathy. CHEST: Lungs have some diminished breath sounds, especially on the right base with some rhonchi bilaterally in the bases. CARDIOVASCULAR: Tones fairly regular without any significant gallops. ABDOMEN: Distended yet soft, somewhat tender especially in the right lower quadrant. No organomegaly evident. EXTREMITIES: Trace of edema. Muscle tone is fair. Unable to get the patient up because the patient lacks the strength and the balance, and will require further evaluation for safety of ambulation. NEUROLOGIC: The patient is grossly disoriented and is able to communicate to some degree, but otherwise is unable to cooperate and contribute with her history. LABORATORY: White count is 16,700 with 73% neutrophils, hemoglobin 11.6 which is stable. Chemistry shows potassium 4.1, BUN 15, creatinine 0.89, glucose 125 , calcium 9.1. Liver enzymes normal. Albumin is low at 3. Last TSH was about 9 months ago and was elevated at 6. Urinalysis pending. Blood cultures pending. Chest x-ray reveals right lower lobe infiltrate suggesting pneumonia process with followup suggested. ASSESSMENT: 1. Acute right lower lobe pneumonia probable healthcare facility acquired with antibiotic initiated parenterally. 2. Chronic dementia with severe disability worsening. 3. Hypothyroidism with supplementation continued. 4. Generalized weakness not walking with increased fall risk. 5. Leukocytosis probably secondary to the underlying infection. 6. History of transient ischemic attacks with significant neurologic and functional decline. PLAN: The patient is admitted for parenteral therapy and supportive care. Special attention to giving medications which she will only accept in the liquid form. Continue with nutrition and close observation and management. Anticipate 3 days of parenteral therapy, then continued with oral therapy at the Alzheimer[facility] Unit at [place]. Close followup suggested. #[id number] [facility]Anna
[2016-05-25] MEDS: SODIUM CHLORIDE 0.9% 1000ML 1,000 ML IVS PRN (14:14)
[2016-05-25] MEDS ORDERED: QUEtiapine FUMARATE 25 MG TAB PO ONE (15:55)
[2016-05-25] MEDS ORDERED: NON-FORMULARY MEDICATION 1 EA MIS PO ONE (16:00)
[2016-05-25] MEDS: IPRATROPIUM/ALBUTEROL 3 ML VIAL NEB SCH ×2 (16:45→21:02)
[2016-05-25] MEDS: IV SET AND CAP CHANGE INJ INJ SCH (17:22)
[2016-05-25] MEDS: ENOXAPARIN SODIUM 40 MG/0.4 ML SYG SUBCU SCH (17:33)
[2016-05-25] MEDS: SERTRALINE HCL 50 MG TAB PO SCH (17:33)
[2016-05-25] MEDS ORDERED: OMEPRAZOLE CAP 20 MG CAP ONE (20:26)
[2016-05-25] MEDS ORDERED: LEVOTHYROXINE SODIUM 0.025 MG TAB ONE (20:26)
[2016-05-25] MEDS: GABAPENTIN 500 MG PO SCH (20:51)
[2016-05-25] MEDS: NON-FORMULARY MEDICATION 1 EA MIS (Memantine Hcl [Namenda Xr] 28 MG) PO SCH (20:52)
[2016-05-25] MEDS: QUEtiapine FUMARATE 25 MG TAB PO SCH (20:52)
[2016-05-25] MEDS: cefTRIAXone SODIUM 1 GM in SODIUM CHL 0.9% 50ML MIN-BAG+ 50 ML IVPB SCH (20:53)
[2016-05-25] MEDS ORDERED: RIVASTIGMINE TARTRATE 6 MG PO SCH (21:00)
[2016-05-25] MEDS: ONDANSETRON INJ 4 MG/2 ML VIAL IV PRN (21:20)
[2016-05-25] MEDS: SODIUM CHLORIDE 0.9% (FLUSH) 10 ML SYG IV PRN (21:20)
[2016-05-25] MEDS ORDERED: cefTRIAXone SODIUM 1 GM in SODIUM CHL 0.9% 50ML MIN-BAG+ 50 ML IVPB SCH (22:00)
[2016-05-26] MEDS: OMEPRAZOLE CAP 20 MG CAP PO SCH (06:10)
[2016-05-26] MEDS: LEVOTHYROXINE SODIUM 0.025 MG TAB PO SCH (06:10)
[2016-05-26] MEDS ORDERED: OMEPRAZOLE CAP 20 MG CAP PO SCH (06:30)
[2016-05-26] MEDS ORDERED: ASPIRIN TABLET 325 MG TAB ONE (07:13)
[2016-05-26] MEDS ORDERED: SODIUM CHL 0.9% 50ML MIN-BAG+ 50 ML IVPB ONE ×2 (07:13→20:22)
[2016-05-26] MEDS ORDERED: cefTRIAXone SODIUM 1 GM VIAL ONE ×2 (07:14→20:22)
[2016-05-26] MEDS: SERTRALINE HCL 50 MG TAB PO SCH ×2 (07:35→17:19)
[2016-05-26] MEDS: cefTRIAXone SODIUM 1 GM in SODIUM CHL 0.9% 50ML MIN-BAG+ 50 ML IVPB SCH ×2 (08:34→20:32)
[2016-05-26] MEDS: QUEtiapine FUMARATE 25 MG TAB PO SCH ×2 (08:34→20:33)
[2016-05-26] MEDS: IPRATROPIUM/ALBUTEROL 3 ML VIAL NEB SCH ×3 (08:38→21:00)
[2016-05-26] MEDS: ASPIRIN (CHEWABLE) 81 MG TAB PO SCH (08:39)
[2016-05-26] MEDS: GABAPENTIN 250 MG PO SCH (08:39)
[2016-05-26] MEDS: MEGESTROL ACETATE SUSP 400 MG/10 ML UD PO SCH (08:39)
[2016-05-26] MEDS: ENOXAPARIN SODIUM 40 MG/0.4 ML SYG SUBCU SCH (08:42)
[2016-05-26] MEDS: RIVASTIGMINE 13.3 MG TD SCH (08:42)
[2016-05-26] MEDS ORDERED: AZITHROMYCIN IV 500 MG in SODIUM CHLORIDE 0.9% 250ML 250 ML IVPB SCH (10:00)
[2016-05-26] MEDS ORDERED: SODIUM CHLORIDE 0.9% 250ML 250 ML ONE (10:42)
[2016-05-26] MEDS ORDERED: AZITHROMYCIN IV 500 MG VIAL IVPB ONE (10:42)
[2016-05-26] MEDS: AZITHROMYCIN IV 500 MG in SODIUM CHLORIDE 0.9% 250ML 250 ML IVPB SCH (10:46)
[2016-05-26] MEDS: SODIUM CHLORIDE 0.9% 1000ML 1,000 ML IVS PRN (10:47)
--- NOTE | 2016-05-26 14:43 | PN ---
DATE: 05/26/16 SUBJECTIVE: The patient is sitting up in the chair with her sitter paying close attention to her. She is able to communicate to a much better level of communication today. Her coloration has improved. She is able to respond to some questions though is still grossly disoriented. She is eating better which is completely different than yesterday. She does not remember coming into the hospital. OBJECTIVE: Afebrile, pulse 94, blood pressure 115/70, respirations 20, pulse oximetry 92% on 1 liter. Intake and output is fairly good. GENERAL: The patient is still quite disoriented but is much more pleasant and cooperative, eating and drinking at an improved level compared to yesterday. LUNGS: Have some diminished breath sounds with some rhonchi, especially in the lateral agudelo. HEART: Tones are somewhat distant. ABDOMEN: Soft with no significant tenderness or organomegaly evident. EXTREMITIES: Muscle tone is fairly good. LABORATORY: Repeat lab and x-ray tomorrow. Initial studies on blood cultures show no growth. Repeat chest x-ray in the morning to followup on the bibasilar infiltrates. ASSESSMENT: 1. Acute right lower lobe pneumonia probable healthcare facility acquired with antibiotic initiated parenterally and cultures pending. 2. Chronic dementia with severe disability and worsening with slight clinical improvement since yesterday. 3. Hypothyroidism with supplementation to be continued. 4. Generalized weakness and not walking with increased fall risk. 5. Leukocytosis probably secondary to the underlying infection. 6. History of transient ischemic attacks with significant neurological and functional decline. PLAN: Continue with nutrition and fluid intake. Continue with antibiotics with Rocephin and Azithromycin parenterally. The sitters are helpful in her ongoing care. Repeat chest x-ray and lab in the morning and review with the family. The patient is currently a guest at the memory unit at [place] and will require ongoing specialized nursing care as well as the ongoing sitters to assist with her ongoing care. #[id number] [facility]
[2016-05-26] MEDS: GABAPENTIN 500 MG PO SCH (20:32)
[2016-05-26] MEDS: SODIUM CHLORIDE 0.9% (FLUSH) 10 ML SYG IV PRN (20:33)
[2016-05-26] MEDS: NON-FORMULARY MEDICATION 1 EA MIS (Memantine Hcl [Namenda Xr] 28 MG) PO SCH (20:33)
[2016-05-26] MEDS: ONDANSETRON INJ 4 MG/2 ML VIAL IV PRN (20:33)
[2016-05-27] MEDS: LEVOTHYROXINE SODIUM 0.025 MG TAB PO SCH (06:11)
[2016-05-27] MEDS: OMEPRAZOLE CAP 20 MG CAP PO SCH (06:11)
--- NOTE | 2016-05-27 07:31 | RAD ---
EXAM DESCRIPTION: Chest,1 View CLINICAL HISTORY: bibasilar infiltrates COMPARISON: May 25, 2016 IMPRESSION: Single AP portable upright view of the chest shows cardiac silhouette to be upper limits of normal in size. Interval increasing interstitial thickening throughout the lungs bilaterally is seen dominantly in the left perihilar and left greater than right basilar regions suggesting worsening bilateral pneumonia. Congestive heart failure is considered less likely. There remains some elevation of the right hemidiaphragm. Distinctness of the costophrenic angles bilaterally suggests bilateral pleural effusions. Tortuous thoracic aortic arch is again noted. Electronically signed by: Sheldon Kearns MD 05/27/2016 7:30 AM CDT
[2016-05-27] MEDS ORDERED: POTASSIUM CHLORIDE 20 MEQ TAB ONE (07:39)
[2016-05-27] MEDS ORDERED: SODIUM CHL 0.9% 50ML MIN-BAG+ 50 ML IVPB ONE ×2 (07:39→20:53)
[2016-05-27] MEDS ORDERED: cefTRIAXone SODIUM 1 GM VIAL ONE ×2 (07:40→20:54)
[2016-05-27] MEDS: SERTRALINE HCL 50 MG TAB PO SCH ×2 (08:03→17:14)
[2016-05-27] MEDS: cefTRIAXone SODIUM 1 GM in SODIUM CHL 0.9% 50ML MIN-BAG+ 50 ML IVPB SCH ×2 (08:33→21:07)
[2016-05-27] MEDS: QUEtiapine FUMARATE 25 MG TAB PO SCH ×2 (08:35→21:07)
[2016-05-27] MEDS: ENOXAPARIN SODIUM 40 MG/0.4 ML SYG SUBCU SCH (08:35)
[2016-05-27] MEDS: RIVASTIGMINE 13.3 MG TD SCH (08:37)
[2016-05-27] MEDS: GABAPENTIN 250 MG PO SCH (08:37)
[2016-05-27] MEDS: MEGESTROL ACETATE SUSP 400 MG/10 ML UD PO SCH (08:40)
[2016-05-27] MEDS: ASPIRIN (CHEWABLE) 81 MG TAB PO SCH (08:43)
[2016-05-27] MEDS: POTASSIUM CHLORIDE 10 MEQ TAB PO SCH ×2 (08:48→17:14)
[2016-05-27] MEDS: IPRATROPIUM/ALBUTEROL 3 ML VIAL NEB SCH ×4 (09:41→21:10)
[2016-05-27] MEDS ORDERED: SODIUM CHLORIDE 0.9% 250ML 250 ML ONE ×2 (10:04→10:13)
[2016-05-27] MEDS ORDERED: AZITHROMYCIN IV 500 MG VIAL IVPB ONE ×2 (10:04→10:14)
[2016-05-27] MEDS: AZITHROMYCIN IV 500 MG in SODIUM CHLORIDE 0.9% 250ML 250 ML IVPB SCH (10:15)
--- NOTE | 2016-05-27 13:26 | PN ---
DATE: 05/27/16 SUBJECTIVE: The patient is lying in the bed and is able to open her eyes and respond to questioning, though still extremely disoriented. She is able to stalk in full sentences. Of concern is the fact that she is requiring more oxygen in order to maintain a given pulse oximetry. Appetite is fair. Dark urine has been noted and incontinent and will be adjusted to be observed with a urinalysis and intake and output with Ridley catheter assistance. OBJECTIVE: VITAL SIGNS: Afebrile. Pulse 111. Blood pressure 121/75. Pulse oximetry 90% on nasal cannula requiring up to 3-1/2 liters. When she came in, she was about the same pulse oximetry on room air, so a significant decline is evident and will need to be approached. This is discussed with the family. Intake and output does show a fairly good intake and only a small amount of measurable output. Therefore, the Ridley catheter to assist with I&O determination. LUNGS: Some rhonchi as well as some upper airway wheezing sounds. HEART: Tones are somewhat distant. ABDOMEN: Obese, yet soft. EXTREMITIES: SCDs placed on lower extremities to assist with DVT prophylaxis. LABORATORY: White count up to 18,200 with 74% neutrophils. Hemoglobin 10.4. Chemistries show potassium down to 3.4 with supplementation started. BUN stable at 15, creatinine 0.68, glucose 135, albumin 2.5. Beta natriuretic peptide 157. C-reactive protein extremely elevated at 23.6. Troponin normal at 0.04. Blood cultures are negative. Repeat chest x-ray today shows some worsening of alveolar fluffy infiltrates, suggesting a bilateral pneumonia which is no doubt contributing to some of the persistence and somewhat worsening hypoxia. The patient continues to dual antibiotic coverage. Await urinalysis determination. ASSESSMENT: 1. Acute bilateral pneumonia with worsening radiographic findings, requiring parenteral therapy. Cultures pending and negative thus far. 2. Chronic dementia with severe disability and worsening. 3. Hypothyroidism with supplementation to be continued. 4. Generalized weakness and not walking with increased fall risk. 5. Leukocytosis, persistent. 6. History of transient ischemic attack with significant neurological and functional decline. 7. History of blunt head injury a year ago with associated subdural and epidural hematoma with recheck of CT scan now a year later. 8. Possible petit mal seizure type activity. Await results of CT scan with seizure activity possibly from previous scars from previous blunt head injury, etc. PLAN: Condition is discussed at length with daughter who is apprized of the seriousness of the patient's condition. The patient is a DNR. The patient's family does not wish intubation and at this time do not wish to be transferred to a higher level of care. In the meantime, we will continue with antibiotic coverage. We will add corticosteroid to assist with possible adrenal insufficiency, but also for membrane stability of the lungs in a lady who has smoked in the past. We will continue with some IV fluids and encourage p.o. fluids and closely observe for prevention of over hydration. Condition is serious. #[id number] [facility]
--- NOTE | 2016-05-27 13:49 | CT ---
EXAM DESCRIPTION: CT head without contrast CLINICAL HISTORY: seizures, hx of subdural COMPARISON: 10/30/2015 TECHNIQUE: Multiple axial images of the head without contrast. FINDINGS: There is no CT evidence of intracranial hemorrhage, mass effect, or large territory acute infarction. Moderate generalized volume loss is present. Moderate to severe supratentorial white matter hypodensities. There are no abnormal extra-axial fluid collections. Calcific plaque in the visualized arteries. There is no acute calvarial defect. Mucosal thickening in the ethmoid air cells. The mastoid air cells are clear. IMPRESSION: 1. No CT evidence of an acute intracranial abnormality. If there is concern for an acute or subacute infarct, consider follow-up MRI. 2. Advanced senescent changes. Electronically signed by: Lang Sims MD 05/27/2016 1:48 PM CDT
[2016-05-27] MEDS: FUROSEMIDE INJ 20 MG/2 ML VIAL IV SCH ×2 (14:15→17:15)
[2016-05-27] MEDS: methylPREDNISolone SODIUM SUC 40 MG/ML VIAL IV SCH (14:16)
[2016-05-27] MEDS: SODIUM CHLORIDE 0.9% 1000ML 1,000 ML IVS PRN (15:39)
[2016-05-27] MEDS: GABAPENTIN 500 MG PO SCH (21:06)
[2016-05-27] MEDS: NON-FORMULARY MEDICATION 1 EA MIS (Memantine Hcl [Namenda Xr] 28 MG) PO SCH (21:07)
[2016-05-28] MEDS ORDERED: IPRATROPIUM/ALBUTEROL 3 ML VIAL NEB ONE (03:18)
[2016-05-28] MEDS: LEVOTHYROXINE SODIUM 0.025 MG TAB PO SCH (06:11)
[2016-05-28] MEDS: OMEPRAZOLE CAP 20 MG CAP PO SCH (06:12)
--- NOTE | 2016-05-28 07:13 | RAD ---
EXAM: Single view chest. INDICATION: Chest pain. COMPARISON: Chest x-ray: 05/27/2016. FINDINGS: There are worsening diffuse interstitial and airspace opacities. The heart size is stable. Small pleural effusions are likely present. There is no pneumothorax. The bones are demineralized. IMPRESSION: Worsening diffuse interstitial and airspace opacities, likely representing worsening edema and/or pneumonia Electronically signed by: Dustin Brennan MD 05/28/2016 7:12 AM CDT
[2016-05-28] MEDS ORDERED: SODIUM CHLORIDE 0.9% 250ML 0 ML ONE (07:27)
[2016-05-28] MEDS ORDERED: SODIUM CHL 0.9% 50ML MIN-BAG+ 50 ML IVPB ONE ×4 (07:27→20:54)
[2016-05-28] MEDS ORDERED: cefTRIAXone SODIUM 1 GM VIAL ONE (07:27)
[2016-05-28] MEDS ORDERED: AZITHROMYCIN IV 500 MG VIAL IVPB ONE (07:28)
[2016-05-28] MEDS: SERTRALINE HCL 50 MG TAB PO SCH ×2 (07:40→17:03)
[2016-05-28] MEDS: POTASSIUM CHLORIDE 10 MEQ TAB PO SCH ×2 (07:40→17:03)
[2016-05-28] MEDS: IPRATROPIUM/ALBUTEROL 3 ML VIAL NEB SCH ×4 (08:15→21:50)
[2016-05-28] MEDS: ASPIRIN (CHEWABLE) 81 MG TAB PO SCH (08:52)
[2016-05-28] MEDS: QUEtiapine FUMARATE 25 MG TAB PO SCH ×2 (08:52→21:39)
[2016-05-28] MEDS: RIVASTIGMINE 13.3 MG TD SCH (08:56)
[2016-05-28] MEDS: GABAPENTIN 250 MG PO SCH (08:57)
[2016-05-28] MEDS: cefTRIAXone SODIUM 1 GM in SODIUM CHL 0.9% 50ML MIN-BAG+ 50 ML IVPB SCH (08:59)
[2016-05-28] MEDS: MEGESTROL ACETATE SUSP 400 MG/10 ML UD PO SCH (09:00)
[2016-05-28] MEDS: methylPREDNISolone SODIUM SUC 40 MG/ML VIAL IV SCH (09:00)
[2016-05-28] MEDS: FUROSEMIDE INJ 20 MG/2 ML VIAL IV SCH ×2 (09:00→17:07)
[2016-05-28] MEDS: ENOXAPARIN SODIUM 40 MG/0.4 ML SYG SUBCU SCH (09:02)
--- NOTE | 2016-05-28 09:26 | PCM.CORE ---
Physician DVT/VTE - Prophylaxis Currently: Patient already on anticoagulation therapy - Nurse DVT Assessment & Total Each Risk Factor Represents 3 Points: Age over 75 years Each Risk Factor Represents 2 Points: Confined to bed >72 hours Each Risk Factor Represents 1 Point: Medical PT at Bed Rest Each Risk Factor is 1 Point: Obesity (BMI >25), Serious Lung disease (pnemonia < 1month, COPD, emphysema,etc) DVT Assessment Score: 8
[2016-05-28] MEDS ORDERED: CEFEPIME 2 GM in SODIUM CHL 0.9% 50ML MIN-BAG+ 50 ML IVPB SCH (09:30)
[2016-05-28] MEDS ORDERED: LEVALBUTEROL NEBS 0.63 MG/3 ML VIAL NEB PRN (09:47)
[2016-05-28] MEDS ORDERED: CLINDAMYCIN IV 600MG 50 ML IVPB ONE (09:56)
[2016-05-28] MEDS ORDERED: CEFEPIME 2 GM VIAL IVPB ONE (09:57)
[2016-05-28] MEDS ORDERED: CLINDAMYCIN IV 600MG 600 MG in PREMIX BAG 1 BAG IVPB SCH (10:00)
[2016-05-28] MEDS: BIFIDOBACTERIUM INFANTIS 4 MG CAP PO SCH ×3 (10:14→21:37)
[2016-05-28] MEDS: FLUCONAZOLE 100 MG TAB PO SCH (10:31)
[2016-05-28] MEDS ORDERED: FLUCONAZOLE 100 MG TAB ONE (10:32)
--- NOTE | 2016-05-28 11:32 | PN ---
DATE: 05/28/16 SUBJECTIVE: The patient is sitting in the chair. She is able to carry on a conversation, which is more normal compared to yesterday. She is still having some respiratory issues with shallow breaths. Her pulse is less fast than yesterday. She is requiring more oxygen today and for this reason, specific intervention needs to be increased. Appetite seems to be a little better today. The daughter and the sitter state that her communication and her thinking seems to be better today than yesterday. The patient states she feels better today. OBJECTIVE: VITAL SIGNS: Afebrile. Pulse 100. Blood pressure 138/87. Pulse oximetry 91%, requiring up to 5 liters which is a little more than yesterday. Weight is up and needs to be rechecked with good urine output of over 2100 mL, compared to 800 mL input. LUNGS: Rhonchi bilaterally with some decreased breath sounds, especially in the bases and a few wheezing present of the upper airways. Isolated rales also noted laterally. She is tolerating her medication nebulizers. No sputum production yet and this will need to be induced. HEART: Tones are regular, though somewhat fast. ABDOMEN: Obese, yet soft. Ridley catheter is in place. LABORATORY: White count is up to 19,400 with 82% neutrophils, hemoglobin 9.8. Chemistries show potassium up to 3.5, BUN 17, creatinine 0.64, glucose 184. Urinalysis yesterday did show some proteinuria and blood in the urine with no bacteria present. Blood cultures are negative thus far and awaiting sputum culture results. Chest x-ray shows worsening fluffy infiltrates in both lung agudelo, which may be indicative of the significant underlying pulmonary condition requiring increasing oxygen today. For this reason, significant changes are in effect of her treatment program with continued observation and increased respiratory input. ASSESSMENT: 1. Acute bilateral pneumonia with worsening radiographic findings, requiring parenteral therapy with cultures pending and sputum to be obtained today. Alteration of antibiotic coverage in progress. 2. Chronic dementia with severe disability. 3. Hypothyroidism on supplementation. 4. Generalized weakness and not walking with increased fall risk. 5. Leukocytosis, persistent. 6. History of transient ischemic attack with significant neurological and functional decline. 7. History of blunt head injury a year ago with associated subdural and epidural hematoma with CT scan failing to show any significant recurrence. 8. History of possible petit mal seizure type activity noted by family with with no evidence of acute intracranial process contributing. PLAN: Respiratory therapy will increase respiratory intervention with the use of BiPAP to assist with improved aeration of the lungs as well as to help take away some of the work of breathing. Medication nebulizers to be offered during the BiPAP treatment. Given p.r.n. Xopenex at nighttime if needed with suction trap to allow us to examine for gram stain. Diflucan because of the possibility of underlying fungal component. The Rocephin has stopped and will be continued on cefepime with increased spectrum of coverage and add clindamycin because of the possibility of aspiration component. Increase Align to t.i.d. Close observation and reevaluation necessary. #[id number] ADDENDUM: The patient's condition was discussed with a granddaughter, who is an automatic machines supervisor/infectious disease specialist in the [facility] area. Antibiotic coverage has been augmented and will be augmented to maximum at this time in order to give the patient at least a chance to get better with close followup in the near future. Her new antibiotic coverage will include vancomycin per pharmacy protocol as well as Levaquin and Merrem to help cover for additional gram negative coverage. Close attention and support with the BiPAP and respiratory support in progress. Await gram stain and culture results on sputum acquired by suction trap collection. Continue with vigorous pulmonary hygiene and rehab with attention to the underlying significant infectious condition. Close followup is necessary and readjustment as required. #[id number] [facility]
[2016-05-28] MEDS ORDERED: VANCOMYCIN PER PHARMACY INJ SCH (12:30)
[2016-05-28] MEDS ORDERED: levoFLOXacin 500MG IV 100 ML IVPB ONE (12:48)
[2016-05-28] MEDS ORDERED: MEROPENEM 1 GM VIAL IVPB ONE ×2 (12:49→20:54)
[2016-05-28] MEDS: AZITHROMYCIN IV 500 MG in SODIUM CHLORIDE 0.9% 250ML 250 ML IVPB SCH (12:55)
[2016-05-28] MEDS: IV SET AND CAP CHANGE INJ INJ SCH (12:55)
[2016-05-28] MEDS: levoFLOXacin 500MG IV 500 MG in PREMIX BAG 1 BAG IVPB SCH ×2 (12:56→13:37)
[2016-05-28] MEDS ORDERED: SODIUM CHLORIDE 0.9% NEB 3 ML VIAL ONE (13:02)
[2016-05-28] MEDS: levETIRAcetam SUSPENSION 100 MG/ML BTTL PO SCH ×2 (13:16→21:38)
[2016-05-28] MEDS: MEROPENEM 1 GM in SODIUM CHL 0.9% 50ML MIN-BAG+ 50 ML IVPB SCH ×2 (14:23→20:54)
[2016-05-28] MEDS: SODIUM CHLORIDE 0.9% 1000ML 1,000 ML IVS PRN (14:35)
[2016-05-28] MEDS ORDERED: VANCOMYCIN HCL INJ 1,000 MG VIAL IVPB ONE (14:44)
[2016-05-28] MEDS ORDERED: SODIUM CHL 0.9% 250ML (AVIVA) 250 ML IVPB ONE (14:44)
[2016-05-28] MEDS: VANCOMYCIN HCL IVPB SCH (15:11)
[2016-05-28] MEDS: SODIUM CHL 0.9% IVPB SCH (15:11)
[2016-05-28] MEDS: GABAPENTIN 500 MG PO SCH (21:38)
[2016-05-28] MEDS: NON-FORMULARY MEDICATION 1 EA MIS (Memantine Hcl [Namenda Xr] 28 MG) PO SCH (21:38)
[2016-05-29] MEDS ORDERED: HYDROmorphone HCL INJ 2 MG/ML VIAL IV PRN (00:31)
[2016-05-29] MEDS: KETOROLAC TROMETHAMINE INJ 30 MG/ML VIAL IV PRN ×3 (00:55→10:25)
[2016-05-29] MEDS ORDERED: VANCOMYCIN HCL INJ 500 MG VIAL ONE (02:49)
[2016-05-29] MEDS ORDERED: SODIUM CHLORIDE 0.9% 250ML 250 ML ONE (02:50)
[2016-05-29] MEDS: SODIUM CHL 0.9% IVPB SCH (02:57)
[2016-05-29] MEDS: VANCOMYCIN HCL IVPB SCH (02:57)
[2016-05-29] MEDS ORDERED: MEROPENEM 1 GM VIAL IVPB ONE (04:40)
[2016-05-29] MEDS ORDERED: SODIUM CHL 0.9% 50ML MIN-BAG+ 50 ML IVPB ONE (04:40)
[2016-05-29] MEDS: MEROPENEM 1 GM in SODIUM CHL 0.9% 50ML MIN-BAG+ 50 ML IVPB SCH ×2 (05:12→12:37)
[2016-05-29] MEDS: OMEPRAZOLE CAP 20 MG CAP PO SCH (05:57)
[2016-05-29] MEDS: LEVOTHYROXINE SODIUM 0.025 MG TAB PO SCH (05:57)
[2016-05-29 06:28] VITALS: TEMP 98.2
--- NOTE | 2016-05-29 07:20 | RAD ---
EXAM DESCRIPTION: Chest,1 View CLINICAL HISTORY: pneumonia, low O2 FINDINGS/ IMPRESSION: Comparison 05/28/2016 Bilateral interstitial and alveolar infiltrates which are increasing in the right lower lobe and left lower lobe. No pleural effusion. Heart size normal Electronically signed by: Clinton Pennington MD 05/29/2016 7:20 AM CDT
[2016-05-29] MEDS ORDERED: ASPIRIN TABLET 325 MG TAB ONE (07:35)
[2016-05-29] MEDS: SERTRALINE HCL 50 MG TAB PO SCH (07:37)
[2016-05-29] MEDS: POTASSIUM CHLORIDE 10 MEQ TAB PO SCH (07:37)
[2016-05-29] MEDS: IPRATROPIUM/ALBUTEROL 3 ML VIAL NEB SCH ×2 (08:24→12:36)
[2016-05-29] MEDS: GABAPENTIN 250 MG PO SCH (09:13)
[2016-05-29] MEDS: ASPIRIN (CHEWABLE) 81 MG TAB PO SCH (09:28)
[2016-05-29] MEDS: FLUCONAZOLE 100 MG TAB PO SCH (09:28)
[2016-05-29] MEDS: BIFIDOBACTERIUM INFANTIS 4 MG CAP PO SCH (09:28)
[2016-05-29] MEDS: ENOXAPARIN SODIUM 40 MG/0.4 ML SYG SUBCU SCH (09:29)
[2016-05-29] MEDS: levETIRAcetam SUSPENSION 100 MG/ML BTTL PO SCH (09:29)
[2016-05-29] MEDS: FUROSEMIDE INJ 20 MG/2 ML VIAL IV SCH (09:29)
[2016-05-29] MEDS: RIVASTIGMINE 13.3 MG TD SCH (09:30)
[2016-05-29] MEDS: methylPREDNISolone SODIUM SUC 40 MG/ML VIAL IV SCH (09:30)
[2016-05-29] MEDS: MEGESTROL ACETATE SUSP 400 MG/10 ML UD PO SCH (09:30)
[2016-05-29] MEDS: QUEtiapine FUMARATE 25 MG TAB PO SCH (09:30)
[2016-05-29 10:51] VITALS: BP 151/76; O2SAT 92
--- NOTE | 2016-06-03 11:26 | DS ---
SUPERVISING PHYSICIAN: Alhaji Boyer MD DISCHARGE DIAGNOSIS: 1. Admission to hospice for care and comfort measures secondary to pneumonia with advancing respiratory failure. 2. Acute right lower lobe pneumonia, [facility] acquired with failure to respond to multiple antibiotic therapy parenterally, requiring admission to Acute Care with failure to respond and changed from Acute Care to Hospice Care per family's request. 3. Chronic dementia with severe disabilities, worsening. 4. Hypothyroidism, on supplementation at time of discharge. 5. Leukocytosis, secondary to underlying pneumonia. 7. History of transient ischemic attacks with significant neurological and functional decline in the last several weeks prior to admission. HISTORY OF PRESENT ILLNESS: Ms. Covarrubias is an 85-year-old, female who was admitted initially to the hospital on 05/25/16 from the Emergency Room after being found by family at [facility] having severe respiratory distress with cough and fever. She had been coughing for 1-1/2 weeks, which had been increasing fever noted the evening prior to admission. She was noted to have mild respiratory distress periodically prior to admission. The patient was unable to fully cooperate with the history on admission, but her symptoms had been well documented by her daughter who is a retired Emergency Room nurse. The dementia had been getting progressively worse over the last 4 or 5 months to the point where the family was unable to care for the patient at home and had been in [place] for the last 4 weeks with a sitter to assist with her ongoing care. She required maximal assistance to just transfer from the bed to a chair. The patient was admitted to the hospital on Medical/Surgical Floor for IV antibiotic therapy because of the patient's refusal to take pills and even refusal to take many of her medications which are usually in the liquid form. In order to maximize care, she was admitted for at least 3 days of IV antibiotic secondary the right lower lobe infiltrate noted on x-ray on the day of admission. The patient was started on antibiotic therapy on Acute Care and was a DNR. She was aggressively treated with antibiotics to assist with the patient's ability to recover. However, her pneumonia infection was overwhelming and the patient showed minimal improvement. Given the fact that the patient had a severe decline in her mental status and severe dementia, the family had discussed amongst the members that the best action for the patient at current time was to try a round of antibiotics for a period of time and if unable to show any significant improvement, to transfer the patient to hospice care. The patient was provided aggressive antibiotic therapy for well over 4 days, but failed to show any significant improvement. On 05/29/16, her chest x-ray showed bilateral interstitial alveolar infiltrates that were increasing, especially in the right lower and left lower lobes. Given the patient's physical decline and failure to respond, the family decided to change the patient to Hospice Care for care and comfort measures only. [facility] was consulted and the patient was transferred from Acute Care to Hospice Care for care and comfort measures. LABORATORY: Initial CBC on admission showed a white count of 16.7. Despite aggressive treatment, her white count continued to increase and on date of discharge showed white count 20.4. Hemoglobin and hematocrit, however, were fairly stable and on discharge were 10.2 and 31.5. Platelet count remained within normal limits. She did show a left shift that was persistent. Blood gas on admission showed pH 7.4, PO2 60, bicarb 24, PCO2 37. Base excess 1.4, O2 saturation 94% on room air. Chemistries initially on admission were fairly normal with electrolytes being normal with potassium 4.1. Through admission and with therapy, electrolytes stayed fairly stable and at discharge, potassium was 4.0, BUN 24, creatinine 0.79, glucose 121. C-reactive protein was 23.6. BNP was elevated at 157 and 152. All other liver functions were fairly normal. Urinalysis showed protein 100, trace blood on dipstick, otherwise within normal limits. One stool occult blood was negative. MICROBIOLOGY: MRSA surveillance culture showed no growth at 72 hours. Final sputum culture showed normal lorin that was reduced. She had two blood cultures that remained negative after five days. RADIOLOGY: Initial chest x-ray in the Emergency Department prior to admission per radiology interpretation showed presence of mild infiltrate atelectasis in the right lung zone. CT of the head after admission and a repeat chest x-ray. Repeat chest x-ray after admission per radiology interpretation, single view, showed interval increased interstitial thickening throughout the lungs, primarily in the left perihilar and left greater than right basilar region suggesting worsening bilateral pneumonia. Congestive failure was also considered. There was also mention of suggestion of bilateral pleural effusions. CT of the head after admission without contrast per radiology interpretation showed no CT evidence of acute intracranial abnormality. There was note of advanced senescent changes. She had another repeat x-ray on and per radiology interpretation showed worsening diffuse interstitial and airspace opacities, likely representing worsening pneumonia. Final x-ray on prior to discharge showed bilateral interstitial infiltrates which are increased in the right lower lobe and left lower lobe. HOSPITAL COURSE: Ms. Covarrubias was an 85-year-old, female who was initially admitted to the hospital on 05/25/16 as noted history of present illness for severe shortness of breath secondary to bilateral pneumonia. She was initially started on antibiotic therapy with Rocephin and azithromycin and given IV fluids for support. After she showed poor clinical results and x-rays were worsening, she was transitioned to antibiotic coverage that included Levaquin and meropenem to cover for any other anaerobes or other unforeseen organisms. She was provided airway support and respiration support with noninvasive ventilation with BiPAP. Vital signs initially on admission showed she had a temperature of 98.5 with O2 saturation 92% on room air, blood pressure 118/60. On progression of her clinical stay, she became significantly worse in regards to her breathing, became significantly tachycardic, and was showing shallow respirations with some dyspnea even despite utilizing BiPAP. At one point, she was satting 88% on nasal cannula at 5 liters and respirations were 28. She did show T-max 100.0. Ultimately, her respirations continued to decline and even with maximum support of BiPAP, she was satting 89%, but was fairly hemodynamically stable. On the morning of discharge after it was determined from the patient's family that she wished to change to hospice care, she was taken off BiPAP and had respirations well up in the 40s, satting 92% on BiPAP, but satting with non-rebreather fairly decent at 92%. After a lengthy discussion with the family and it was determined that we had tried extensive rounds of antibiotics and very aggressive treatment and the patient's physical condition continued to decline, the family decided the patient would be best served by changing from aggressive Acute Care to care and comfort measures only as the patient's ultimate prognosis was grim. She was changed from Acute Care to Hospice Care after consultation with [facility]. Also note, the patient was on vancomycin along all other antibiotics as listed above. PLAN: The patient was admitted to inpatient hospice under the direction of [facility] and provided care and comfort measures. The family members were at the bedside at time of admission to hospice as the patient was changed to care and comfort measures only and was made comfortable. At time of discharge from Acute Care to Hospice Care, her prognosis was grim with not unexpected soon after admission to hospice. #[id number] DANAY
== END 2016-05-29 13:06 | disposition hospice, inpatient (51) | DRG 195 ==
LOC: ER 09:42 → MS 12:15
PROVIDERS: ADMIT Emergency Medicine; ATTEND Emergency Medicine
DX: J18.9 Pneumonia, unspecified organism (principal); Y95 Nosocomial condition; R09.02 Hypoxemia; E03.9 Hypothyroidism, unspecified; M62.81 Muscle weakness (generalized); G30.9 Alzheimer's disease, unspecified; F02.80 Dementia in other diseases classified elsewhere, unspecified severity, without behavioral disturbance, psychotic disturbance, mood disturbance, and anxiety; E78.5 Hyperlipidemia, unspecified; I10 Essential (primary) hypertension; R32 Unspecified urinary incontinence; Z86.73 Personal history of transient ischemic attack (TIA), and cerebral infarction without residual deficits; Z91.81 History of falling; Z87.440 Personal history of urinary (tract) infections; Z88.5 Allergy status to narcotic agent; Z66 Do not resuscitate; Z79.82 Long term (current) use of aspirin

== ENCOUNTER 2016-05-29 13:09 | Inpatient (IN) | payer MEDICARE, OTHER ==
[2016-05-29] MEDS ORDERED: SODIUM CHLORIDE 0.9% (FLUSH) 10 ML SYG IV PRN (13:51)
[2016-05-29] MEDS ORDERED: HYDROmorphone HCL INJ 2 MG/ML VIAL IV PRN (13:57)
[2016-05-29] MEDS ORDERED: SODIUM CHLORIDE 0.9% 1000ML 1,000 ML IVS PRN (13:59)
[2016-05-29] MEDS ORDERED: KETOROLAC TROMETHAMINE INJ 30 MG/ML VIAL IV SCH (14:00)
[2016-05-29] MEDS ORDERED: IV SET AND CAP CHANGE INJ INJ SCH (14:00)
[2016-05-29 14:33] VITALS: BP 109/71; TEMP 97.2; O2SAT 94
[2016-05-29] MEDS ORDERED: MORPHINE SULFATE INJ 10 MG/ML VIAL ONE (16:05)
[2016-05-29] MEDS ORDERED: MORPHINE SULFATE INJ 10 MG/ML VIAL IV ONE (16:06)
[2016-05-29] MEDS: MORPHINE SULFATE INJ 10 MG/ML VIAL IV PRN ×2 (16:44→17:19)
[2016-05-29] MEDS ORDERED: SODIUM CHLORIDE 0.9% (FLUSH) 10 ML SYG IV SCH (21:00)
--- NOTE | 2016-05-31 08:54 | SSS ---
SUPERVISING PHYSICIAN: Alhaji Boyer MD DATE OF ADMISSION: 05/29/16 DATE OF EXPIRATION/DISCHARGE: 05/29/16 at approximately 1800 DISCHARGE DIAGNOSIS: 1. secondary to complicated pneumonia with respiratory failure. 2. Admission to hospice for care and comfort measures secondary to pneumonia with respiratory failure. 3. Acute right lower lobe pneumonia, [facility] acquired with failure to respond to multiple antibiotic therapy parenterally, requiring admission to Acute Care with failure to respond and changed from Acute Care to Hospice Care per family's request. 4. Chronic dementia with severe disabilities, worsening. 5. Hypothyroidism, presently on supplements. 6. Leukocytosis, secondary to underlying pneumonia. 7. History of transient ischemic attacks with significant neurological and functional decline in the last several weeks. HISTORY OF PRESENT ILLNESS: Ms. Covarrubias is an 85-year-old, female who was admitted initially to the hospital on 05/25/16 from the Emergency Room after being found by family at [facility] having severe respiratory distress with cough and fever. She had been coughing for 1-1/2 weeks, which had been increasing fever noted the evening prior to admission. She was noted to have mild respiratory distress periodically prior to admission. The patient was unable to fully cooperate with the history on admission, but her symptoms had been well documented by her daughter who is a retired Emergency Room nurse. The dementia had been getting progressively worse over the last 4 or 5 months to the point where the family is unable to care for the patient at home and had been in [place] for the last 4 weeks with a sitter to assist with her ongoing care. She required maximal assistance to just transfer from the bed to a chair. The patient was admitted to the hospital on Medical/Surgical Floor for IV antibiotic therapy because of the patient's refusal to take pills and even refusal to take many of her medications which are usually in the liquid form. In order to maximize care, she was admitted for at least 3 days of IV antibiotic secondary the right lower lobe infiltrate noted on x-ray on the day of admission. The patient was started on antibiotic therapy on Acute Care and was a DNR. She was aggressively treated with antibiotics to assist with the patient's ability to recover. However, her pneumonia infection was overwhelming and the patient showed minimal improvement. Given the fact that the patient had a severe decline in her mental status and severe dementia, the family had discussed amongst the members that the best action for the patient at current time was to try a round of antibiotics for a period of time and if unable to show any significant improvement, to transfer the patient to hospice care. The patient was provided aggressive antibiotic therapy for well over 4 days, but failed to show any significant improvement. On 05/29/16, her chest x-ray showed bilateral interstitial alveolar infiltrates that were increasing, especially in the right lower and left lower lobes. Given the patient's physical decline and failure to respond, the family decided to change the patient to Hospice Care. [facility] was consulted and the patient was transferred from Acute Care to Hospice Care for care and comfort measures. LABORATORY: There were no additional laboratory studies on hospice admission. RADIOLOGY: There were no additional radiographic studies on hospice admission. HOSPITAL COURSE: The patient was admitted to inpatient hospice under the direction of [facility] and provided care and comfort measures. Her extensive family members were at the bedside with the patient and the patient was slowly titrated down on her oxygen requirements and provided pain control and Ativan to provide for the patient's comfort. The patient progressed rather quickly, but in a very comfortable manner and ultimately on 05/29/16 on the same date of admission to hospice at approximately 1800 hours and was pronounced by [facility] nurse. PLAN: The patient on 05/29/16 with initial prognosis on admission grim with not unexpected. Her body was released to [facility] at 1915. The patient's family was at the patient's bedside until the patient and was ultimately transferred to [facility]. #[id number] MTDD
== END 2016-05-29 18:15 | disposition expired | DRG 189 ==
LOC: MS 13:09
PROVIDERS: ADMIT Nurse Practitioner Family; ATTEND Nurse Practitioner Family
DX: J96.00 Acute respiratory failure, unspecified whether with hypoxia or hypercapnia (principal); J18.9 Pneumonia, unspecified organism; F03.90 Unspecified dementia, unspecified severity, without behavioral disturbance, psychotic disturbance, mood disturbance, and anxiety; E03.9 Hypothyroidism, unspecified; Y95 Nosocomial condition; Z86.73 Personal history of transient ischemic attack (TIA), and cerebral infarction without residual deficits; Z66 Do not resuscitate